=== PATIENT | male | born 1965 | race African-American/Black ===

== ENCOUNTER 2022-07-05 03:55 | Day surgery (SDC) | payer OTHER ==
[2022-06-30 17:41] VITALS: BMI 25.8
[~2022-07-05 03:55] MED LIST: BUPIVACAINE HCL/PF 0.5% (5MG/ML) 10 ML VIAL IJ ONE; LIDOCAINE 1%/EPI 1:100000 (50 ML MULTI DOSE VIAL) INF ONE; ceFAZolin SODIUM 1 GM VIAL IVPB ONE
[2022-07-05] MEDS ORDERED: BUPIVACAINE HCL/PF 0.5% (5MG/ML) 10 ML VIAL ONE (07:11)
[2022-07-05] MEDS ORDERED: PROPOFOL 40 ML ONE (07:36)
[2022-07-05] MEDS ORDERED: MIDAZOLAM HCL 2 MG/2 ML SINGLE DOSE VIAL ONE (07:37)
[2022-07-05] MEDS ORDERED: LIDOCAINE 1%/EPI 1:100000 (50 ML MULTI DOSE VIAL) INF ONE (08:21)
[2022-07-05] MEDS ORDERED: BUPIVACAINE HCL/PF 0.5% (5MG/ML) 10 ML VIAL IJ ONE (08:21)
[2022-07-05] MEDS ORDERED: PROPOFOL 20 ML ONE (08:30)
[2022-07-05] MEDS ORDERED: oxyCODONE HCL 5 MG TABLET PO PRN (08:46)
[2022-07-05] MEDS ORDERED: ONDANSETRON 4 MG/2 ML VIAL IVPUSH PRN (08:46)
[2022-07-05] MEDS ORDERED: LACTATED RINGERS SOLUTION 1,000 ML IV SCH (09:00)
[2022-07-05 10:54] VITALS: RESP 16; TEMP 98.5
[2022-07-05 11:12] VITALS: BP 130/70; PULSE 60
== END 2022-07-05 10:20 | disposition home or self-care (01) ==
LOC: JASU-SURG 03:55
PROVIDERS: ATTEND Orthopaedic Surgery
PROC: 0SBC4ZZ Excision of Right Knee Joint, Percutaneous Endoscopic Approach (ICD-10-PCS; principal; 2022-07-05 08:00)
DX: S83.281A Other tear of lateral meniscus, current injury, right knee, initial encounter (principal); X58.XXXA Exposure to other specified factors, initial encounter; Y92.9 Unspecified place or not applicable; Y93.9 Activity, unspecified
CPT/HCPCS: 94760

== ENCOUNTER 2022-12-04 04:18 | Day surgery (SDC) | payer OTHER ==
[2022-11-30 18:00] VITALS: BMI 27.3
[2022-12-04] MEDS ORDERED: LIDOCAINE HCL 1%, 10 MG/ML (20ML VIAL) ONE (10:08)
[2022-12-04] MEDS ORDERED: BUPIVACAINE HCL/PF 0.5% (5MG/ML) 10 ML VIAL ONE ×2 (10:08→10:29)
[2022-12-04] MEDS ORDERED: ACETAMINOPHEN INJECTION 100 ML IVPB ONE (10:28)
[2022-12-04] MEDS ORDERED: MIDAZOLAM HCL 2 MG/2 ML SINGLE DOSE VIAL ONE (10:29)
[2022-12-04] MEDS ORDERED: DEXAMETHASONE SOD PHOSPHATE 10 MG/1 ML VIAL ONE (10:29)
[2022-12-04] MEDS ORDERED: ONDANSETRON 4 MG/2 ML VIAL IVPUSH PRN (10:52)
[2022-12-04] MEDS ORDERED: oxyCODONE HCL 5 MG TABLET PO PRN ×2 (10:52)
[2022-12-04] MEDS ORDERED: LACTATED RINGERS SOLUTION 1,000 ML IV SCH (11:00)
[2022-12-04] MEDS ORDERED: PROPOFOL 40 ML ONE (11:08)
[2022-12-04] MEDS ORDERED: ceFAZolin SODIUM 1 GM VIAL ONE ×2 (11:14)
[2022-12-04] MEDS ORDERED: ONDANSETRON 4 MG/2 ML VIAL ONE (11:18)
[2022-12-04] MEDS ORDERED: KETOROLAC TROMETHAMINE 30 MG/1 ML VIAL ONE (11:18)
[2022-12-04] MEDS ORDERED: DEXAMETHASONE SOD PHOSPHATE 4 MG/1 ML VIAL ONE (11:18)
[2022-12-04 14:44] VITALS: RESP 20
[2022-12-04 14:47] VITALS: BP 130/84; PULSE 59; TEMP 97.8
== END 2022-12-04 14:49 | disposition home or self-care (01) ==
LOC: JASU-SURG 04:18
PROVIDERS: ATTEND Orthopaedic Surgery
PROC: 0PBG0ZZ Excision of Left Humeral Shaft, Open Approach (ICD-10-PCS; principal; 2022-12-04 11:36)
DX: M77.12 Lateral epicondylitis, left elbow (principal); S56.512A Strain of other extensor muscle, fascia and tendon at forearm level, left arm, initial encounter; X58.XXXA Exposure to other specified factors, initial encounter; Y93.9 Activity, unspecified; Y92.9 Unspecified place or not applicable; Y99.9 Unspecified external cause status
CPT/HCPCS: 88304-TC; 94760; J1100